=== PATIENT | male | born 1970 | race Caucasian/White ===

== ENCOUNTER → 2023-11-09 | Outpatient (CLI) | payer OTHER ==
--- NOTE | 2023-11-09 12:19 | XR ---
EXAMINATION TYPE: XR knee limited RT DATE OF EXAM: 11/09/2023 COMPARISON: NONE HISTORY: Pain TECHNIQUE: Two views are submitted. FINDINGS: Components of the knee replacement surgery noted. Small amount of fluid in the suprapatellar bursa domínguez ggestive. Cannot exclude a small amount of fluid in Hoffa's fat pad. Soft tissue edema suspected. The re is no acute fracture. No dislocation. IMPRESSION: 1. Soft tissue edema. Suspect possibility of a joint effusion correlate with MRI or ultrasound as cli nically warranted.
== END | disposition home or self-care (01) ==
LOC: RADXRMAIN 11:32
PROVIDERS: ATTEND Family Medicine
DX: R60.0 Localized edema (principal); M25.561 Pain in right knee; Z96.651 Presence of right artificial knee joint